=== PATIENT | female | born 1995 | race Caucasian/White ===

== ENCOUNTER 2016-07-24 15:38 | Emergency (ER) | payer OTHER ==
--- NOTE | ~2016-07-24 | CT71 ---
[facility] RADIOLOGY TEXT RESULTS PATIENT: NADEEM SIMMONS LOCATION: [facility] : 96 UNIT #: [id number] AGE: [address]: Garth Francisco MD SEX: F ORDER DR: [id number] [facility] [address] [place], [place] [address] [id number] E MR#: [id number] Acc #: [id number] NAME: NADEEM SIMMONS : 1995 SEX: F STUDY DATE/TIME: 07/24/2016 14:42 UNIT: [facility] ROOM: STUDY DESCRIPTION: CT Head Wo Contrast Attending Physician: Daniel Francisco M.D. Ordering Physician: Adelso Kemp M.D. Primary Care Physician: No Primary Care Physician MEDICAL IMAGING REPORT This report is preliminary unless electronic signature is present EXAM CT scan of the brain without contrast. INDICATION Headache starting on with blurry vision in the left eye. TECHNIQUE This CT exam was performed with one or more of the following radiation dose reduction techniques: automatic exposure control, adjustment of mA and/or kV according to patient size, and iterative reconstruction. FINDINGS Axial noncontrast images were obtained from the skull base to the vertex. Ventricular size and configuration are normal. There is no evidence of acute infarct or hemorrhage. There are no extra-axial fluid collections. No mass lesion or mass effect is seen. There are no skull fractures. IMPRESSION Normal noncontrast head CT. Dictated by... Vignesh Pritchard M.D. THIS IS AN ELECTRONICALLY VERIFIED REPORT Vignesh Pritchard M.D. at 07/24/2016 9:54 PM ADELFO/norah TD: 07/24/2016 18:22 JOB #: [id number] [facility] RADIOLOGY TEXT RESULTS PATIENT: NADEEM SIMMONS LOCATION: [facility] : 96 UNIT #: [id number] AGE: [address]: Garth Francisco MD SEX: F ORDER DR: MEDICAL IMAGING REPORT Page 1 of 1 COPY
== END 2016-07-24 16:59 | disposition home or self-care (01) ==
LOC: CED 15:38
DX: R51 Headache (principal)
CPT/HCPCS: 70450; 84703; 96372; 99284; J1885